=== PATIENT | female | born 1990 | race Caucasian/White ===

== ENCOUNTER 2016-08-01 01:39 | Emergency (ER) | payer SELFPAY ==
[~2016-08-01] VITALS: Ht 152.4 cm; Wt 52.2 kg
[2016-08-01] MEDS ORDERED: ONDANSETRON 4 MG TAB.RAPDIS ONE (02:35)
[2016-08-01] MEDS ORDERED: ONDANSETRON 4 MG TAB.RAPDIS SL ONE (03:00)
[2016-08-01 03:35] VITALS: BP 114/82
== END 2016-08-01 03:35 | disposition home or self-care (01) ==
LOC: ER 01:45
DX: R11.2 Nausea with vomiting, unspecified (principal); F32.9 Major depressive disorder, single episode, unspecified; F90.9 Attention-deficit hyperactivity disorder, unspecified type
CPT/HCPCS: 99283; A4606; Q0162; Z7610

== ENCOUNTER 2024-09-25 18:26 | Emergency (ER) | payer OTHER ==
[~2024-09-25] VITALS: Ht 152.4 cm; Wt 53.5 kg
[2024-09-25] MEDS: IV NS 0.9% 1,000 ML BAG IV ONE (18:50)
[2024-09-25] MEDS: LEVETIRACETAM (500MG) 1,000 MG in IV NS 0.9% 90 ML IV SCH (19:10)
[2024-09-25 19:31] LABS: BASOPHILS # (AUTO) 0.1 K/uL (0.0-0.2); BASOPHILS % (AUTO) 1.3 % (0.0-2.0); EOSINOPHILS # (AUTO) 0.2 K/uL (0.0-0.7); HEMATOCRIT 38 % (33-45); HEMOGLOBIN 12.8 g/dL (11.5-14.8); LYMPHOCYTES # (AUTO) 1.1 K/uL (0.8-4.8); LYMPHOCYTES % (AUTO) 24.8 % (20.0-44.0); MEAN CORPUSCULAR HEMOGLOBIN 32 PG (26.0-33.0); MEAN CORPUSCULAR HGB CONC 34 g/dl (31.0-36.0); MEAN CORPUSCULAR VOLUME 94 fL (82-100); MONOCYTES # (AUTO) 0.6 K/uL (0.1-1.30); MONOCYTES % (AUTO) 13.6 % (2.0-12.0); NEUTROPHILS # (AUTO) 2.5 K/uL (1.8-8.9); NEUTROPHILS % (AUTO) 55.3 % (43.0-81.0); PLATELET COUNT (AUTO) 216 K/uL (150-450); RED BLOOD CELL COUNT(AUTO) 4.06 MIL/uL (4.0-5.2); RED CELL DISTRIBUTION WIDTH 17.8 % (11.5-15.0); WHITE BLOOD COUNT (AUTO) 4.5 K/uL (4.3-11.0)
[2024-09-25 19:38] LABS: ALBUMIN 3.7 g/dL (3.4-5.0); BILIRUBIN,DIRECT 0.2 mg/dL (0.0-0.2); BILIRUBIN,TOTAL 0.7 mg/dL (0.2-1.0); CREATININE 0.8 mg/dL (0.6-1.3); TOTAL PROTEIN, SERUM 6.7 g/dL (6.4-8.2)
[2024-09-25 19:45] LABS: POTASSIUM 3.7 mmol/L (3.5-5.1)
[2024-09-25] MEDS ORDERED: LEVE250T2 PO (20:55)
[2024-09-25 21:10] VITALS: BP 135/80; TEMP 98.6; O2SAT 99
== END 2024-09-25 21:10 | disposition home or self-care (01) ==
LOC: ER 18:49
DX: R56.9 Unspecified convulsions (principal); F32.A Depression, unspecified; Z60.2 Problems related to living alone
CPT/HCPCS: 99285; 96365; 70450; 93005; 85025; 80048; 80076; 36415; 84702; J7030 ×2; J1953; A4223 ×2